=== PATIENT | female | born 1955 | race Caucasian/White ===

== ENCOUNTER 2018-08-22 08:23 | Day surgery (SDC) | payer OTHER ==
[2018-08-22] MEDS ORDERED: FENTAnyl 50 MCG/ML VIAL (11:01)
[2018-08-22] MEDS ORDERED: MIDAZOLAM 1 MG/ML 2 ML INJ ×2 (11:01)
== END 2018-08-22 11:29 | disposition home or self-care (01) ==
LOC: GIL 08:23
DX: Z12.11 Encounter for screening for malignant neoplasm of colon (principal); K64.4 Residual hemorrhoidal skin tags; E11.9 Type 2 diabetes mellitus without complications
CPT/HCPCS: 45378; 82962